=== PATIENT | female | born 1990 | race Caucasian/White ===

== ENCOUNTER 2022-11-24 11:00 | Outpatient (RCR) | payer OTHER ==
[2022-11-10 11:40] VITALS: BP 105/70; PULSE 78; TEMP 98.5
--- NOTE | 2022-11-10 14:25 | NUR ---
PT DISCHARGED AT APPROX 1330. SHE WAS OBSERVED FOR 30 MINUTES FOLLOWING INITIAL IRON INFUSION. PT WSA FREE FROM SIGNS OF ADVERSE RXN AND PT'S VS REMAINED WNL. SHE TOLERATED PO FLUIDS DURING INFUSION AND WAS FREE FROM CONCNERNS AND COMPLAINTS AT TIME OF DISCHARGE. PT VERBALIZED WHEN HER NEXT APPOINTMENT WILL BE.
[2022-11-17 11:30] VITALS: BP 102/71; PULSE 72; TEMP 98.6
[~2022-11-24] VITALS: Wt 116.1 kg
[~2022-11-24 11:00] MED LIST: ALDACTONE50 MG PO; PROAIR HFA0.09 MG/AC IH
[2022-11-24 11:09] VITALS: BP 122/84; PULSE 81; TEMP 98.1
== END 2022-11-24 11:44 ==
LOC: EUO 11:00
DX: Z79.899 Other long term (current) drug therapy (principal)
CPT/HCPCS: J1756